=== PATIENT | male | born 1995 | race African-American/Black ===

== ENCOUNTER 2020-10-20 19:07 | Emergency (ER) | payer OTHER, BC ==
[~2020-10-20] VITALS: Ht 188 cm; Wt 125.0 kg
[2020-10-20 19:25] VITALS: BP 141/85
[2020-10-20] MEDS ORDERED: ORPH-16 PO (19:53)
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
[2020-10-20] MEDS ORDERED: IBUPROFEN 600 MG TABLET. PO ONE (20:00)
== END 2020-10-20 20:05 | disposition home or self-care (01) ==
LOC: ER 19:07 → MERGE 19:07 → ER 20:05
DX: S16.1XXA Strain of muscle, fascia and tendon at neck level, initial encounter (principal); V43.52XA Car driver injured in collision with other type car in traffic accident, initial encounter; Y93.I9 Activity, other involving external motion; Y92.89 Other specified places as the place of occurrence of the external cause; Y99.8 Other external cause status
CPT/HCPCS: 99283

== ENCOUNTER 2020-11-04 14:22 | Emergency (ER) | payer OTHER, BC ==
[~2020-11-04] VITALS: Ht 188 cm; Wt 125.0 kg
[~2020-11-04 14:22] MED LIST: ORPH-16 PO
[2020-11-04] MEDS ORDERED: KETOROLAC 60 MG/2 ML VIAL. IM ONE (15:00)
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
[2020-11-04] MEDS ORDERED: MELO15TA23 PO (15:19)
[2020-11-04] MEDS ORDERED: CYCL-331 PO (15:19)
[2020-11-04 15:32] VITALS: BP 132/75
== END 2020-11-04 15:32 | disposition home or self-care (01) ==
LOC: ER 14:22
DX: M54.5 Low back pain (principal); V89.2XXA Person injured in unspecified motor-vehicle accident, traffic, initial encounter; Y93.I9 Activity, other involving external motion; Y92.89 Other specified places as the place of occurrence of the external cause; Y99.8 Other external cause status
CPT/HCPCS: 72100; 96372; 99283; J1885